=== PATIENT | female | born 1960 | race Caucasian/White ===

== ENCOUNTER 2019-02-03 13:19 | Emergency (ER) | payer MEDICAID ==
[~2019-02-03] VITALS: Wt 77.0 kg
[2019-02-03 13:20] VITALS: BP 160/78; PULSE 88; RESP 18
[2019-02-03] MEDS ORDERED: ACETAMINOPHEN 325 MG TAB PO ONE (15:00)
[2019-02-03] MEDS ORDERED: IBUP-1542 PO (17:03)
[2019-02-03] MEDS ORDERED: CEPH-443 PO (17:03)
--- NOTE | 2019-02-03 17:05 | ERD ---
ER Documentation Chief Complaint Chief Complaint mullins x 4 years HPI 58-year-old female presents with a headache which she says is her entire head for the last 4 years. She has not been seen for this. She denies any fevers, visual changes, history of trauma, deficits. She denies urinary complaints, abdominal pain, breath or chest pain. ROS All systems reviewed and are negative except as per history of present illness. Medications Home Meds Active Scripts Cephalexin* (Keflex*) 500 Mg Capsule, 500 MG PO QID for 5 Days, CAP Prov:JAQUAN HERNANDEZ MD 02/03/19 Ibuprofen* (Motrin*) 600 Mg Tab, 600 MG PO Q6, #30 TAB Prov:JAQUAN HERNANDEZ MD 02/03/19 PMhx/Soc Hx Alcohol Use: No Hx Substance Use: No Hx Tobacco Use: No FmHx Family History: No diabetes, No coronary disease, No other Physical Exam Vitals Vital Signs Date Temp Pulse Resp B/P (MAP) Pulse Ox O2 O2 Flow FiO2 Time Delivery Rate 02/03/19 98.6 88 18 160/78 99 13:20 (105) Physical Exam Const: No acute distress Head: Atraumatic Eyes: Normal Conjunctiva. Eyes Chat[place] and extraocular movements intact. ENT: Normal External Ears, Nose and Mouth. TMs and oropharynx normal. Neck: Full range of motion. No meningismus. Resp: Clear to auscultation bilaterally Cardio: Regular rate and rhythm, no murmurs Abd: Soft, non tender, non distended. Normal bowel sounds Skin: No petechiae or rashes Back: No midline or flank tenderness Ext: No cyanosis, or edema Neur: Awake and alert normal gait. Cranial nerves II through XII grossly intact. No cerebellar signs. Negative Romberg no pronator drift. Psych: Normal Mood and Affect Results 24 hrs Laboratory Tests Test 02/03/19 15:06 Urine Color YELLOW Urine Clarity CLEAR Urine pH 6.0 Urine Specific [place] 1.018 Urine Ketones NEGATIVE mg/dL Urine Nitrite NEGATIVE mg/dL Urine Bilirubin NEGATIVE mg/dL Urine Urobilinogen NEGATIVE mg/dL Urine Leukocyte Esterase 2+ Ekta/ul Urine Microscopic RBC 2 /HPF Urine Microscopic WBC 6 /HPF Urine Hemoglobin 1+ mg/dL Urine Glucose NEGATIVE mg/dL Urine Total Protein NEGATIVE mg/dl Current Medications Medications Dose Sig/Cait Start Time Status Last (Trade) Ordered Route PRN Stop Time Admin Dose Reason Admin 650 mg ONCE ONCE 02/03/19 DC 02/03/19 Acetaminophen PO 15:00 02/03/19 15:04 (Tylenol 15:01 Tab) Procedures/MDM Shows leukocyte esterase and white blood cells. Patient given the chronicity of headache CT brain was performed which shows no acute abnormalities. She has empty sella. She was given Tylenol for pain. Patient was treated with Keflex and ibuprofen and primary care follow-up. She has no signs of neurologic deficit, meningitis, additional emergent signs or symptoms of presenting complaints. The patient was stable with no new complaints during the ER course. Clinically, there is no current evidence to suggest meningitis, sepsis, acute abdomen, pneumonia, stroke, acute coronary syndrome, pulmonary embolism, aortic dissection or any other emergent condition appearing to require further evaluation or hospitalization. Patient counseled regarding my diagnostic impression and care plan. Prior to discharge all questions answered. Pt agrees with treatment plan and understands strict return precautions. Pt is instructed to follow up with primary care provider within 24-48 hours. Precautionary instructions provided including instructions to return to the ER if not improving or for any worsening or changing symptoms or concerns. Departure Diagnosis: Primary Impression: UTI (urinary tract infection) Urinary tract infection type: acute cystitis Hematuria presence: without hematuria Qualified Codes: N30.00 - Acute cystitis without hematuria Additional Impression: Headache Headache type: unspecified Headache chronicity pattern: unspecified pattern Intractability: not intractable Qualified Codes: R51 - Headache Condition: Stable Patient Instructions: Understanding Urinary Tract Infections (UTIs), Self-Care for Headaches [facility] Usted se mullins hecho un examen mdico de control que le indica que no est en rachael condicin que requiera tratamiento urgente en el Departamento de Emergencia. Un estudio ms profundo y el tratamiento de mario condicin pueden esperar sin ningn riesgo hasta que usted sea atendida/o en el consultorio de mario mdico o rachael clnica. Es responsabilidad suya arreglar rachael rogelio para el seguimiento del ruben. MANEJO DE CONDICIONES NO URGENTES EN EL FUTURO 1) Si usted tiene un mdico de atencin primaria: Usted debera llamar a mario mdico de atencin primaria antes de venir al departamento de emergencia. Despus de las horas de consultorio, mario doctor o mario asociado/a est disponible por telfono. El mdico o enfermero de shanelle en el servicio telefnico puede asesorarle por bhavya medio para atender el problema, o ruben contrario se puede programar rachael rogelio. 2) Si usted no tiene un mdico de atencin primaria: Llame al mdico o clnica de referencia que aparece abajo vidal las horas de consultorio para hacer rachael rogelio para que le vean. CLINICAS: [facility] [phone] [facility] [phone] [facility] [phone] [facility] [phone] [place] [id number] [phone] [facility] [phone] [address] Additional Instructions: hay infeccion en orina y vamos a tratar. CT normal. Cheque otro vez con mario doctor primario en el proximo dunbar or regresa para mas o nueva simptomas. JAQUAN HERNANDEZ MD Feb 03, 2019 17:05
== END 2019-02-03 17:22 | disposition home or self-care (01) ==
LOC: FTE 13:19
DX: N30.00 Acute cystitis without hematuria (principal)
CPT/HCPCS: 70450; 81001; Z7502; Z7610